=== PATIENT | female | born 1970 | race Caucasian/White ===

== ENCOUNTER 2021-04-19 18:16 | Emergency (ER) | payer OTHER ==
[2021-04-19 20:16] LABS: HEMOGLOBIN 11.7 gm/dl (12.3-15.3); RED BLOOD COUNT 3.93 M/UL (4.00-5.10); WHITE BLOOD COUNT 9.1 K/UL (4.5-11.0)
[2021-04-19 20:42] LABS: BUN/CREATININE RATIO 11 (0-10)
[2021-04-19] MEDS ORDERED: NAPROSYN EC 50500 MG PO (23:33)
== END 2021-04-20 | disposition home or self-care (01) ==
LOC: ER1 18:16
DX: R07.89 Other chest pain (principal); R79.1 Abnormal coagulation profile; M79.604 Pain in right leg; F17.210 Nicotine dependence, cigarettes, uncomplicated; Z79.899 Other long term (current) drug therapy
CPT/HCPCS: 71045; 80053; 82550; 82553; 83874; 83880; 84484; 85025; 85379; 85610; 93005; 96372; 99285; J1650; Q9967

== ENCOUNTER → 2021-04-20 | Outpatient (CLI) | payer OTHER ==
[~2021-04-20] MED LIST: NAPROSYN EC 50500 MG PO
== END ==
LOC: EXRD 14:43
DX: M79.604 Pain in right leg (principal)
CPT/HCPCS: 93971